=== PATIENT | female | born 1950 | race Caucasian/White ===

== ENCOUNTER → 2018-06-23 | Day surgery (SDC) | payer MEDICARE, OTHER ==
[2018-06-22 11:39] LABS: BASOPHILS # (AUTO) 0.1 (0.0-0.1); EOSINOPHILS # (AUTO) 0.1 (0.0-0.4); EOSINOPHILS % 1.4 % (0.0-6.0); HEMATOCRIT 41.3 % (34.2-44.1); HEMOGLOBIN 13.6 g/dL (12.0-16.0); LYMPHOCYTES # (AUTO) 2.4 (1.0-3.2); LYMPHOCYTES % 40.7 % (18.0-39.1); MEAN CORPUSCULAR HEMOGLOBIN 30.6 pg (28-32); MEAN CORPUSCULAR HGB CONC 32.9 g/dL (31-35); MONOCYTES # (AUTO) 0.4 (0.2-0.8); NEUTROPHILS # (AUTO) 2.9 (2.1-6.9); NEUTROPHILS % 50.7 % (38.7-80.0); PLATELET COUNT 248 x10e3/uL (140-360); RED BLOOD COUNT 4.44 x10e6/uL (3.6-5.1); RED CELL DISTRIBUTION WIDTH 12.3 % (11.7-14.4)
[2018-06-22 11:46] LABS: INR 0.84; PROTHROMBIN TIME 12.3 seconds (11.9-14.5)
[2018-06-22 11:51] LABS: ANION GAP 12.4 mmol/L (8-16); CALCIUM 9.8 mg/dL (8.4-10.2); CREATININE, SERUM 0.95 mg/dL (0.57-1.11)
--- NOTE | 2018-06-22 11:57 | Diagnostic Imaging Report ---
EXAMINATION: CHEST 2 VIEWS INDICATION: Pre-op radiograph COMPARISON: None FINDINGS: TUBES and LINES: None. LUNGS: Lungs are well inflated. Mild patchy right basilar opacity, likely atelectasis. There is no evidence of pneumonia or pulmonary edema. PLEURA: No pleural effusion or pneumothorax. HEART AND MEDIASTINUM: The cardiomediastinal silhouette is unremarkable. BONES AND SOFT TISSUES: No acute osseous lesion. Soft tissues are unremarkable. UPPER ABDOMEN: No free air under the diaphragm. IMPRESSION: No acute radiographic abnormality. Signed by: Dr. Dipti Anders MD on 06/22/2018 11:53 AM
[2018-06-22 12:00] LABS: POTASSIUM 5.4 mmol/L (3.5-5.1)
[~2018-06-23] VITALS: Ht 156.2 cm; Wt 68.0 kg
[~2018-06-23] MED LIST: ACIPHEX20 MG PO; ATORVASTATIN CA10 MG PO; CALTRATE 600 W1 EACH PO; LIDOCAINE 1% W/EPINEPHRINE 20 ML VIAL ONE
--- OUTSIDE RECORDS SUMMARY | 2018-06-23 06:19 | XMS REPORT ---
Author Author [facility] Address Unknown Phone Unavailable Care Team Providers Care Game Programmer Name Role Phone JHONATAN BETANCOURT Unavailable Unavailable Problems This patient has no known problems. Allergies, Adverse Reactions, Alerts This patient has no known allergies or adverse reactions. Medications This patient has no known medications. Results Test Description Test Time Test Comments Text Results Atomic Results Result Comments CHEST 2 VIEWS 2018-06-22 11:51:00 [place] [address] Patient Name: GIOVANNA DOSHI MR #: [id number] : 1950 Age/Sex: 68/F Req #: [id number] Adm Physician: Ordered by: JHONATAN BETANCOURT MD Report #: [id number] Location: [facility] Room/Bed: Procedure: [id number] DX/CHEST 2 VIEWS Exam Date: 06/22/18 Exam Time: 1130 REPORT STATUS: Signed EXAMINATION: CHEST 2 VIEWS INDICATION: Pre-op radio graph COMPARISON: None FINDINGS: TUBES and LINES: None. LUNGS: Lungs are well inflated. Mild patchy right basilar opacity, likely atelectasis. There is no evidence of pneumonia or pulmonary edema. PLEURA: No pleural effusion or pneumothorax. HEART AND MEDIASTINUM: The cardiomediastinal silhouette is unremarkable. BONES AND SOFT TISSUES: No acute osseous lesion. Soft tissues are unremarkable. UPPER ABDOMEN: No free air under the diaphragm. IMPRESSION: No acute radiographic abnormality. Signed by: Dr. Michael Park MD on 06/22/2018 11:53 AM Dictated By: MICHAEL PARK MD [id number] Transcribed By: MACHO on 06/22/18 1155 COPY TO: JHONATAN BETANCOURT MD
--- NOTE | 2018-06-23 07:49 | Operative Report ---
DATE OF PROCEDURE: June 23, 2018 PROCEDURE: Implantation of loop recorder. INDICATIONS 1. Palpitations. 2. Paroxysmal atrial fibrillation. 3. Near syncope. COMPLICATIONS: None. ANESTHESIA: Lidocaine. TECHNIQUE: The patient was draped and prepped in the usual fashion without difficulty. The area above the left breast was anesthetized with lidocaine. The insertion tool from the kit was used to make a small incision. The plunger was used to insert the implantable loop recorder. The pocket was closed with 4-0 Vicryl and Dura-Wiley glue. There were no complications. CONCLUSION: Successful insertion of implantable loop recorder. Job#: [id number]
--- NOTE | 2018-06-23 07:58 | Operative Report ---
DATE OF PROCEDURE: June 23, 2018 PROCEDURE: Implantable loop recorder. INDICATIONS 1. Palpitations. 2. Paroxysmal atrial fibrillation. 3. Near syncope. ANESTHESIA: Lidocaine. COMPLICATIONS: None. TECHNIQUE: The left subclavicular area was draped and prepped in the usual manner. The area was anesthetized with lidocaine. The insertion tool from the kit was used to make a small incision. The plunger was used to insert the implantable loop recorder. The incision was closed with 4-0 Vicryl and Dermabond. There were no complications. CONCLUSION: Successful implantation of loop recorder. Job#: [id number]
== END | disposition home or self-care (01) ==
LOC: CATH LAB 06:16
PROVIDERS: ATTEND Internal Medicine Cardiovascular Disease
DX: I48.0 Paroxysmal atrial fibrillation (principal); Z01.810 Encounter for preprocedural cardiovascular examination; Z01.812 Encounter for preprocedural laboratory examination; Z01.818 Encounter for other preprocedural examination
CPT/HCPCS: 33285; 36415; 71046; 80048; 85025; 85610; 93005; C1764; 33282